=== PATIENT | female | born 1940 | race Caucasian/White ===

== ENCOUNTER 2016-12-24 12:00 | Emergency (ER) | payer MEDICARE, BC ==
[~2016-12-24] VITALS: Ht 154.9 cm; Wt 48.2 kg
[~2016-12-24 12:00] MED LIST: BIAXIN 500MG T500 MG PO; CALTRATE 600 +1 TAB PO; COSOPT 2%-0.5%10 ML OU; COSOPT EYE DROPS OD; COZAAR 25MG25 MG/TAB PO; DESYREL 50MG50 MG PO; ETHAMBUTOL HYD400 MG PO; K-TAB10 PO; KLOR-CON 1010 MEQ PO; LEVAQUIN 5500 MG/TA1 PO; LEVAQUIN 750MG750 M1 PO; LISINOPRIL10 MG PO; MAXZIDE-25MG TA1 TAB PO; MULTIPLE VITAMI1 CTB PO; MULTIVITAMIN1 CTB PO; PHENERGAN 25 TA25 MG PO; PHENERGAN W/CO120 M1 PO; PHENERGAN W/CO120 ML PO; PRINZIDE 12.5 M1 TAB PO; RIFADIN300 MG PO; SENOKOT8.6 MG; SENOKOT8.6 MG PO; TETRACYCLINE 2250 MG; TRIAMTERENE/HCT1 CAP PO; VITAMIN D; XALATAN EYE DROPS OU; ZESTRIL 5MG5 MG PO; ZITHROMAX 250M250 MG PO; ZOCOR 10MG10 MG PO; ZOCOR 20MG20 MG PO; ZOFRAN 4MG T4 MG/TAB PO
[2016-12-24 12:02] VITALS: BP 153/84; TEMP 97.6
[2016-12-24 13:19] VITALS: PULSE 55
== END 2016-12-24 13:19 | disposition home or self-care (01) ==
LOC: COL.ER 12:00
DX: S06.0X0A Concussion without loss of consciousness, initial encounter (principal); S01.111A Laceration without foreign body of right eyelid and periocular area, initial encounter; S01.511A Laceration without foreign body of lip, initial encounter; S00.93XA Contusion of unspecified part of head, initial encounter; S80.812A Abrasion, left lower leg, initial encounter; I10 Essential (primary) hypertension; H40.9 Unspecified glaucoma; Z23 Encounter for immunization; W01.198A Fall on same level from slipping, tripping and stumbling with subsequent striking against other object, initial encounter

== ENCOUNTER 2017-04-08 21:49 | Emergency (ER) | payer MEDICARE, BC ==
[~2017-04-08] VITALS: Ht 154.9 cm; Wt 48.6 kg
[2017-04-08 21:51] VITALS: TEMP 98.4
[2017-04-08] MEDS ORDERED: HCTZ12.5TAB PO (21:54)
[2017-04-08 22:34] LABS: BASO # 0.1 (0.0-0.2); BASO % 1.2 % (0.0-2.0); EOS # 0.1 (0.0-0.7); EOS % 1.5 % (0-4.0); GRAN # 5.4 (1.4-6.5); GRAN % 66.8 % (42.2-75.2); HEMATOCRIT 44.5 % (37.0-47.0); LYMPH # 1.4 (1.2-3.4); LYMPH % 17.6 % (20.0-51.0); MEAN CELL VOLUME 89 fl (80.0-100.0); MEAN CORPUSCULAR HEMOGLOBIN 30 pg (27.0-31.0); MEAN CORPUSCULAR HGB CONC 34 g/dl (33.0-37.0); MEAN PLATELET VOLUME 9.8 fl (7.4-10.4); MONO % 12.7 % (1.7-9.3); PLATELET COUNT 248 K/mm3 (130-400); RED BLOOD COUNT 4.98 M/mm3 (4.10-5.30); REDCELL DISTRIBUTION WIDTH-CV 13.8 % (11.5-14.5)
[2017-04-08 22:42] LABS: INR 1.1 (0.8-3.0); PROTHROMBIN TIME 12.4 SECONDS (9.7-12.8)
[2017-04-08 22:45] LABS: PARTIAL THROMBOPLASTIN TIME 29.2 SECONDS (26.0-37.0)
[2017-04-08 22:48] LABS: ADJUSTED CALCIUM 9.3 mg/dL (8.4-10.2); ALBUMIN 4.3 gm/dL (3.5-5.0); BILIRUBIN,TOTAL 0.6 mg/dL (0.0-1.0); C-REACTIVE PROTEIN 1.3 mg/dL (0.0-0.9); CALCIUM 9.5 mg/dL (8.4-10.2); CREATININE, serum 0.91 mg/dL (0.52-1.25); POTASSIUM 3.6 mmol/L (3.4-5.0); TOTAL PROTEIN 7.7 gm/dL (6.4-8.2)
[2017-04-09 00:14] VITALS: BP 155/80; PULSE 65
== END 2017-04-09 00:15 | disposition home or self-care (01) ==
LOC: COL.ER 21:49
PROVIDERS: Emergency Medicine
DX: J47.9 Bronchiectasis, uncomplicated (principal); I10 Essential (primary) hypertension

== ENCOUNTER → 2017-11-30 | Outpatient (CLI) | payer MEDICARE, BC ==
[~2017-11-30] MED LIST changes: +HCTZ12.5TAB PO
== END ==
LOC: MC.RAD 13:36
DX: Z12.31 Encounter for screening mammogram for malignant neoplasm of breast (principal); N64.89 Other specified disorders of breast

== ENCOUNTER → 2017-12-13 | Outpatient (CLI) | payer MEDICARE, BC | LOC: MC.RAD 07:54 | DX: R92.2 Inconclusive mammogram (principal); N64.89 Other specified disorders of breast ==

== ENCOUNTER 2018-01-05 12:55 | Emergency (ER) | payer MEDICARE, BC ==
[~2018-01-05] VITALS: Ht 154.9 cm; Wt 48.6 kg
[2018-01-05 13:07] VITALS: TEMP 97.4
[2018-01-05] MEDS ORDERED: DYAZIDE 25 MG-31 CAP PO (13:12)
[2018-01-05] MEDS ORDERED: VITAMIN D31000 I1 PO (13:13)
[2018-01-05 13:57] LABS: BASO # 0.1 (0.0-0.2); EOS # 0.1 (0.0-0.7); GRAN # 5.1 (1.4-6.5); GRAN % 71.1 % (42.2-75.2); HEMATOCRIT 46.2 % (37.0-47.0); HEMOGLOBIN 15.6 g/dl (12.5-16.0); LYMPH # 1.1 (1.2-3.4); MEAN CELL VOLUME 88 fl (80.0-100.0); MEAN CORPUSCULAR HEMOGLOBIN 30 pg (27.0-31.0); MEAN CORPUSCULAR HGB CONC 34 g/dl (33.0-37.0); MEAN PLATELET VOLUME 9.4 fl (7.4-10.4); MONO # 0.8 (0.1-0.6); MONO % 10.5 % (1.7-9.3); PLATELET COUNT 249 K/mm3 (130-400); RED BLOOD COUNT 5.26 M/mm3 (4.10-5.30); REDCELL DISTRIBUTION WIDTH-CV 13.7 % (11.5-14.5)
[2018-01-05 14:08] LABS: PROTHROMBIN TIME 11.6 SECONDS (9.7-12.8)
[2018-01-05 14:11] LABS: PARTIAL THROMBOPLASTIN TIME 35.3 SECONDS (26.0-37.0)
[2018-01-05 14:13] LABS: D-DIMER < 200.00 ng/mLDDu (200-230)
[2018-01-05 14:17] LABS: ALANINE AMINOTRANSFERASE 29 U/L (9-52); ALKALINE PHOSPHATASE 94 U/L (50-136); ANION GAP 14 mmol/L (7-16); AST,SGOT 42 U/L (15-37); BILIRUBIN,TOTAL 0.5 mg/dL (0.0-1.0); BLOOD UREA NITROGEN 12 mg/dL (7-17); CALCIUM 9.3 mg/dL (8.4-10.2); CARBON DIOXIDE 27 mmol/L (22-30); CHLORIDE 96 mmol/L (98-107); CREATININE, serum 0.87 mg/dL (0.52-1.25); GLUCOSE 94 mg/dL (74-106); POTASSIUM 3.6 mmol/L (3.4-5.0); SODIUM 137 mmol/L (137-145)
[2018-01-05 14:33] LABS: TROPONIN-I < 0.012 ng/mL (0.000-0.034)
[2018-01-05] MEDS ORDERED: TESSALON PERLE200 MG PO (14:41)
[2018-01-05 15:33] VITALS: BP 137/82; PULSE 70
== END 2018-01-05 15:34 | disposition home or self-care (01) ==
LOC: COL.ER 12:55
PROVIDERS: Emergency Medicine
DX: J18.9 Pneumonia, unspecified organism (principal); J47.9 Bronchiectasis, uncomplicated; I10 Essential (primary) hypertension

== ENCOUNTER → 2019-02-01 | Outpatient (CLI) | payer MEDICARE, BC ==
[~2019-02-01] MED LIST changes: +DYAZIDE 25 MG-31 CAP PO; +TESSALON PERLE200 MG PO; +VITAMIN D31000 I1 PO
== END ==
LOC: MC.RAD 11:18
DX: Z12.31 Encounter for screening mammogram for malignant neoplasm of breast (principal)

== ENCOUNTER 2020-03-09 09:29 | Outpatient (CLI) | payer MEDICARE, BC ==
[~2020-03-09] VITALS: Ht 154.9 cm; Wt 49.6 kg
[2020-03-09] VITALS (14 sets, daily range): BP systolic 126–177; BP diastolic 78–104; PULSE 52–75
[~2020-03-09 09:29] MED LIST changes: +ALDACTONE 25MG25 M1 PO; +ASPIRIN 81M81 MG/TA2 PO; +CALCIUM 600MG+D1 TAB PO; +ERY-TAB250 MG PO; +LIPITOR 40MG TA40 MG PO; -MULTIVITAMIN1 CTB PO; +NITROSTAT0.4 MG/TAB SL; +OMNICEF 300MG300 MG PO; +ONE-A-DAY ESSE1 EACH PO; +PLAVIX 75MG TAB75 MG PO; +PROLIA60 MG/ML SQ; +TIMOLOL MALEATE5 M1 OP; +TOPROL XL 25MG25 MG PO
--- NOTE | 2020-03-09 11:24 | NUR ---
Pt arrived to room with pain at right front sternum area.Report received from Josefina delcid.Dr Weiner notified and Dr Weiner came to see pt.Crofton 2 tabs ordered.Per pt request,norco 5mg po,one tab.Will continue to monitor.
--- NOTE | 2020-03-09 12:50 | NUR ---
dISCHARGE INSTRUCTIONS GIVEN TO PT.PT VERBALIZES UNDERSTANDING.int REMOVED,CATHETR TIP INTACT.
--- NOTE | 2020-03-09 13:11 | NUR ---
Pt escorted out via wheelchair by mu Moore.
== END 2020-03-09 13:37 | disposition home or self-care (01) ==
LOC: COL.RAD 09:29
DX: R91.8 Other nonspecific abnormal finding of lung field (principal)

== ENCOUNTER 2020-12-03 16:27 | Emergency (ER) | payer MEDICARE, BC ==
[~2020-12-03] VITALS: Ht 154.9 cm; Wt 51.8 kg
[2020-12-03 16:34] VITALS: TEMP 98.3
[2020-12-03 17:50] LABS: BASO # 0.1 (0.0-0.2); BASO % 1.3 % (0.0-2.0); EOS # 0.1 (0.0-0.7); EOS % 1.5 % (0-4.0); GRAN % 73.2 % (42.2-75.2); HEMATOCRIT 43.4 % (37.0-47.0); LYMPH # 1.2 (1.2-3.4); MEAN CELL VOLUME 89 fl (80.0-100.0); MEAN CORPUSCULAR HEMOGLOBIN 31 pg (27.0-31.0); MEAN CORPUSCULAR HGB CONC 35 g/dl (33.0-37.0); MEAN PLATELET VOLUME 9.9 fl (7.4-10.4); MONO # 0.8 (0.1-0.6); MONO % 9.6 % (1.7-9.3); PLATELET COUNT 241 K/mm3 (130-400); RED BLOOD COUNT 4.89 M/mm3 (4.10-5.30); REDCELL DISTRIBUTION WIDTH-CV 13.4 % (11.5-14.5)
[2020-12-03 18:32] LABS: ALANINE AMINOTRANSFERASE 35 U/L (4-34); ALBUMIN 4.4 gm/dL (3.5-5.0); ALKALINE PHOSPHATASE 74 U/L (50-136); ANION GAP 9 mmol/L (7-16); AST,SGOT 38 U/L (15-37); BILIRUBIN,TOTAL 0.5 mg/dL (0.0-1.0); BLOOD UREA NITROGEN 14 mg/dL (7-17); CALCIUM 9.2 mg/dL (8.4-10.2); CARBON DIOXIDE 26 mmol/L (22-30); CHLORIDE 94 mmol/L (98-107); CREATININE, serum 0.68 (0.52-1.25); GLUCOSE 95 mg/dL (74-106); POTASSIUM 4.5 mmol/L (3.4-5.0); SODIUM 129 mmol/L (137-145); TOTAL PROTEIN 7.6 gm/dL (6.4-8.2)
[2020-12-03 18:46] LABS: TROPONIN-I < 0.012 ng/mL (0.000-0.035)
[2020-12-03 19:20] VITALS: BP 142/78; PULSE 68
== END 2020-12-03 19:20 | disposition home or self-care (01) ==
LOC: COL.ER 16:27
PROVIDERS: Emergency Medicine; Nurse Practitioner
DX: I10 Essential (primary) hypertension (principal); I25.2 Old myocardial infarction; Z95.5 Presence of coronary angioplasty implant and graft; Z88.2 Allergy status to sulfonamides

== ENCOUNTER 2023-08-02 17:26 | Inpatient (IN) | payer MEDICARE, BC ==
[~2023-08-02] VITALS: Ht 152.4 cm; Wt 43.1 kg
[~2023-08-02 17:26] MED LIST changes: +DECADRON6 MG PO; +DOXYCYCLINE 10100 MG PO; +LEXAPRO 5MG5 MG PO; +PROAIR HFA0.09 MG/AC IH; +SENNA-LAX8.6 MG PO
[2023-08-02 18:53] LABS: BASO # 0.1 K/mm3 (0.0-0.2); BASO % 0.5 % (0.0-2.0); EOS # 0.1 K/mm3 (0.0-0.7); GRAN # 10.4 K/mm3 (1.4-6.5); GRAN % 82.5 % (42.2-75.2); HEMATOCRIT 38.5 % (37.0-47.0); LYMPH % 7.9 % (20.0-51.0); MEAN CELL VOLUME 92 fl (80.0-100.0); MEAN CORPUSCULAR HEMOGLOBIN 31 pg (27-31); MEAN CORPUSCULAR HGB CONC 34 g/dl (33.0-37.0); MEAN PLATELET VOLUME 9.2 fl (7.4-10.4); MONO # 0.9 K/mm3 (0.1-0.6); MONO % 7.5 % (1.7-9.3); PLATELET COUNT 294 K/mm3 (130-400); RED BLOOD COUNT 4.18 M/mm3 (4.10-5.30); REDCELL DISTRIBUTION WIDTH-CV 13.2 % (11.5-14.5)
[2023-08-02 19:10] LABS: ALBUMIN 2.9 gm/dL (3.4-4.8); BILIRUBIN,TOTAL 0.6 mg/dL (0.2-1.2); C-REACTIVE PROTEIN 9.85 mg/dL (0.00-0.50); CALCIUM 8.5 mg/dL (8.4-10.2); CREATININE, serum 0.58 mg/dL (0.57-1.11); POTASSIUM 4.1 mmol/L (3.5-4.5); TOTAL PROTEIN 6.1 gm/dL (6.2-8.1)
[2023-08-02 19:19] LABS: TROPONIN-I 0.016 ng/mL (0.00-0.033)
[2023-08-02] MEDS ORDERED: ALDACTONE 25MG25 M1 PO (20:21)
[2023-08-02] MEDS ORDERED: COZAAR 25MG25 MG/TAB PO (20:22)
[2023-08-02 21:00] VITALS: BP_SYST 121
[2023-08-02 21:18] VITALS: BP 121/70; PULSE 84; TEMP 97.7
[2023-08-02 21:30] LABS: CHOLESTEROL RISK RATIO 2.7; MAGNESIUM 1.6 mg/dL (1.6-2.6); PHOSPHOROUS 2.6 mg/dL (2.3-4.7)
[2023-08-03] VITALS (13 sets, daily range): BP systolic 92–103; BP diastolic 44–60; PULSE 56–69; TEMP 97.6–98.5
--- NOTE | 2023-08-03 04:05 | NUR ---
Pt arrived to medical unit at 2114. Alert and oriented x4 accompanied by her Daughter. Daughter advised to take a home covid 19 test or go to emergency to be tested. She is her mothers main caregiver and has been exposed. She was wearing a mask while in the room. Pt vital signs stable, bp soft. Shift assessment complete, on 2 liters nasal cannula. 1 person assist with fww, uses a walker at home. Multiple falls reported over the last 12 months. [place] with bilat hearing aides at bedside. Medicated per emar. Denies further neeeds at this time. Even, unlabored respr. Call light within reach bed alarm set.
[2023-08-03 05:48] LABS: BASO % 0.4 % (0.0-2.0); EOS # 0.1 K/mm3 (0.0-0.7); EOS % 0.7 % (0.0-4.0); GRAN # 5.6 K/mm3 (1.4-6.5); GRAN % 69.9 % (42.2-75.2); HEMATOCRIT 38.3 % (37.0-47.0); HEMOGLOBIN 12.8 g/dl (12.5-16.0); LYMPH # 1.4 K/mm3 (1.2-3.4); LYMPH % 17.1 % (20.0-51.0); MEAN CELL VOLUME 92 fl (80.0-100.0); MEAN CORPUSCULAR HEMOGLOBIN 31 pg (27-31); MEAN CORPUSCULAR HGB CONC 33 g/dl (33.0-37.0); MEAN PLATELET VOLUME 8.9 fl (7.4-10.4); MONO # 0.9 K/mm3 (0.1-0.6); MONO % 11.5 % (1.7-9.3); PLATELET COUNT 267 K/mm3 (130-400); RED BLOOD COUNT 4.15 M/mm3 (4.10-5.30); REDCELL DISTRIBUTION WIDTH-CV 13.3 % (11.5-14.5)
--- NOTE | 2023-08-03 06:07 | NUR ---
HOSPITALIST KENNA, NOTIFIED OF CRITICAL LAB D-dIMER ELEVATION. AWAITING ORDER FOR LOVENOX.
[2023-08-03 06:15] LABS: ALBUMIN 2.7 gm/dL (3.4-4.8); BILIRUBIN,TOTAL 0.6 mg/dL (0.2-1.2); CALCIUM 8.3 mg/dL (8.4-10.2); CREATININE, serum 0.59 mg/dL (0.57-1.11); TOTAL PROTEIN 5.7 gm/dL (6.2-8.1)
--- NOTE | 2023-08-03 10:34 | NUR ---
Patient alert and oriented x4. Denies pain this morning. Shift assessment complete, lung sounds course on the right side and diminished in bases. Patient noted to have a wet cough, but states no mucus has come up. Encouraged to spit any sputum out when possible. Scheduled cough medicine administered. Patient tolerating food and fluids well, has low appetite but ate all of breakfast. Patient ambulating to bathroom and back to bed with a steady gait. SBA and walker required. Patient currently in bed with call light in reach, daughter at bedside. All needs met at this time.
--- NOTE | 2023-08-03 16:19 | NUR ---
Due to COVID protocol, hospice social worker attempted to reach patient via room telephone. Yelitza, patient's daughter, answered the phone and expressed patient has a hard time hearing people via telephone. Yelitza confirmed patient lives in [place] with her , Levy, P# [phone]. Yelitza expressed she is patient's DPOA-HC and best point of contact, P# [phone]. PCP is Dr. Morales, pharmacy is [facility]. No issues affording medications. Yelitza expressed she is primary DPOA-HC and her daughter is secondary, Zachary. SW requested a copy of the DPOA-HC when she could provide a copy. Patient uses a walker at home and Yelitza reports she is independent with ADLS and no home health services at this time. Yelitza will be transporting her to and from appointments. Patient would like to return home at time of discharge. Discharge plan: Home
--- NOTE | 2023-08-03 17:55 | NUR ---
Patient remains stable, BP trending low. Patient denies dizziness and has been ambulating to bathroom with SBA. Per PT patient's SpO2 decreased to 80s during extended activity. Denies pain or discomort. Patient producing thin/moderate/green sputum after Robitussin cough medicine this morning, specimen collected and sent to lab. Patient in bed with call light in reach, all needs met at this time.
[2023-08-04] VITALS (7 sets, daily range): BP systolic 100–129; BP diastolic 60–74; PULSE 60–80; TEMP 97.9–98.1
[2023-08-04 07:32] LABS: BASO % 0.2 % (0.0-2.0); GRAN # 8.6 K/mm3 (1.4-6.5); GRAN % 80.4 % (42.2-75.2); HEMATOCRIT 37.6 % (37.0-47.0); HEMOGLOBIN 12.6 g/dl (12.5-16.0); LYMPH # 1.2 K/mm3 (1.2-3.4); MEAN CELL VOLUME 92 fl (80.0-100.0); MEAN CORPUSCULAR HEMOGLOBIN 31 pg (27-31); MEAN CORPUSCULAR HGB CONC 34 g/dl (33.0-37.0); MONO # 0.8 K/mm3 (0.1-0.6); MONO % 7.7 % (1.7-9.3); PLATELET COUNT 282 K/mm3 (130-400); RED BLOOD COUNT 4.07 M/mm3 (4.10-5.30); REDCELL DISTRIBUTION WIDTH-CV 13.4 % (11.5-14.5)
[2023-08-04 07:53] LABS: CALCIUM 8.4 mg/dL (8.4-10.2); CREATININE, serum 0.56 mg/dL (0.57-1.11); MAGNESIUM 1.9 mg/dL (1.6-2.6); POTASSIUM 4.4 mmol/L (3.5-4.5)
--- NOTE | 2023-08-04 09:46 | NUR ---
Patient alert and oriented x4. Shift assessment complete, no new variances noted. Lung sounds continue to be course, patient still spitting up moderate/thin sputum. Tolerating food/fluids well. Ambulating to bathroom with SBA and walker per baseline. Required some cueing with walker this morning. Patient in bed with call light in reach, all needs met at this time.
[2023-08-04] MEDS ORDERED: DECADRON6 MG PO (10:01)
[2023-08-04] MEDS ORDERED: DOXYCYCLINE 10100 MG PO (10:02)
--- NOTE | 2023-08-04 14:27 | NUR ---
Discharge instructions discussed with patient including follow-up appointment, new medications, and education packets. Discussed signs of respiratory distress and shortness of breath. Patient verbalized understanding. IV discontinued to left hand with no complications. Telemetry off. Patient escorted out by staff and family via wheelchair.
== END 2023-08-04 14:28 | disposition home or self-care (01) | DRG 871 ==
LOC: COL.ER 17:26 → MEDICAL 19:54
PROVIDERS: Nurse Practitioner; Nurse Practitioner Family; ADMIT Internal Medicine
DX: A41.89 Other specified sepsis (principal); J12.82 Pneumonia due to coronavirus disease 2019; U07.1 COVID-19; E44.0 Moderate protein-calorie malnutrition; E87.1 Hypo-osmolality and hyponatremia; Z68.1 Body mass index [BMI] 19.9 or less, adult; I10 Essential (primary) hypertension; E78.5 Hyperlipidemia, unspecified; F32.A Depression, unspecified; E83.42 Hypomagnesemia; I25.10 Atherosclerotic heart disease of native coronary artery without angina pectoris; J47.9 Bronchiectasis, uncomplicated; Z95.5 Presence of coronary angioplasty implant and graft; Z88.2 Allergy status to sulfonamides; Z79.82 Long term (current) use of aspirin; Z79.899 Other long term (current) drug therapy; Z23 Encounter for immunization
CPT/HCPCS: J0456; J0696; J1650; J3475; J7030; J7050; J8540; Q3014

== ENCOUNTER → 2023-08-16 | Outpatient (CLI) | payer MEDICARE, BC | LOC: COL.RAD 12:53 | DX: R91.8 Other nonspecific abnormal finding of lung field (principal) ==

== ENCOUNTER 2024-03-21 17:31 | Inpatient (IN) | payer MEDICARE, BC ==
[~2024-03-21] VITALS: Ht 154.9 cm; Wt 41.4 kg
[~2024-03-21 17:31] MED LIST changes: +BETAXOLOL HCL OP; +MOTRIN 400400 MG/TAB PO; +PERCOCET 325 MG1 TA2 PO; +Remove Patch TD
[2024-03-21] MEDS ORDERED: fentaNYL 50 MCG/ML 2 ML VIAL IV ONE (18:00)
[2024-03-21] MEDS ORDERED: Morphine 4 MG/ML VIAL IV PRN ×2 (19:30→20:30)
[2024-03-21 19:42] LABS: BASO # 0.1 K/mm3 (0.0-0.2); BASO % 0.9 % (0.0-2.0); EOS # 0.2 K/mm3 (0.0-0.7); EOS % 1.6 % (0.0-4.0); GRAN # 10.7 K/mm3 (1.4-6.5); GRAN % 85.7 % (42.2-75.2); HEMOGLOBIN 15.5 g/dl (12.5-16.0); LYMPH % 7.6 % (20.0-51.0); MEAN CELL VOLUME 93 fl (80.0-100.0); MEAN CORPUSCULAR HEMOGLOBIN 31 pg (27-31); MEAN CORPUSCULAR HGB CONC 34 g/dl (33.0-37.0); MEAN PLATELET VOLUME 10.3 fl (7.4-10.4); MONO # 0.5 K/mm3 (0.1-0.6); MONO % 3.6 % (1.7-9.3); PLATELET COUNT 220 K/mm3 (130-400); RED BLOOD COUNT 4.93 M/mm3 (4.10-5.30)
[2024-03-21 19:47] LABS: INR 1.1 (0.8-3.0); PROTHROMBIN TIME 11.9 SECONDS (9.7-12.8)
[2024-03-21 20:03] LABS: BILIRUBIN,TOTAL 0.6 mg/dL (0.2-1.2); CALCIUM 9.5 mg/dL (8.4-10.2); CREATININE, serum 0.75 mg/dL (0.57-1.11); POTASSIUM 3.9 mEq/L (3.5-4.5)
[2024-03-21] MEDS ORDERED: Ondansetron 4 MG/2 ML VIAL IV PRN (20:30)
[2024-03-21] MEDS ORDERED: oxyCODONE/Acetaminophen 5-325 MG TAB PO PRN (20:30)
[2024-03-21] MEDS ORDERED: LR 1,000 ML IV SCH ×2 (20:30)
[2024-03-21] MEDS ORDERED: hydrALAZINE 20 MG/ML 1 ML VIAL IV PRN (20:30)
[2024-03-21 21:00] VITALS: BP_SYST 198
[2024-03-21] MEDS ORDERED: Sennosides/Docusate 8.6-50 MG TAB PO SCH (21:00)
[2024-03-21] MEDS ORDERED: Atorvastatin 40 MG TAB PO SCH (21:00)
[2024-03-21 22:09] VITALS: BP 198/90; PULSE 65; TEMP 97.3
[2024-03-21 23:49] VITALS: BP 170/85; PULSE 88; TEMP 97.5
[2024-03-22] VITALS (15 sets, daily range): BP systolic 114–176; BP diastolic 68–90; PULSE 75–95; TEMP 97.2–98.4
[2024-03-22 02:38] LABS: COLLECTION METHOD CLEAN CATCH
[2024-03-22 02:45] LABS: URINE APPEARANCE CLEAR (CLEAR/HAZY); URINE BLOOD NEGATIVE (NEGATIVE); URINE COLOR YELLOW (YELLOW); URINE GLUCOSE NEGATIVE (NEGATIVE); URINE KETONE NEGATIVE (NEGATIVE); URINE NITRATE NEGATIVE (NEGATIVE); URINE PROTEIN(semi-quant) NEGATIVE (NEGATIVE); URINE UROBILINOGEN 0.2 E.U/dL (0.2-1.0)
[2024-03-22 06:33] LABS: BASO % 0.2 % (0.0-2.0); GRAN # 12.2 K/mm3 (1.4-6.5); GRAN % 87.9 % (42.2-75.2); HEMATOCRIT 42.7 % (37.0-47.0); HEMOGLOBIN 14.5 g/dl (12.5-16.0); LYMPH # 0.9 K/mm3 (1.2-3.4); LYMPH % 6.4 % (20.0-51.0); MEAN CELL VOLUME 91 fl (80.0-100.0); MEAN CORPUSCULAR HEMOGLOBIN 31 pg (27-31); MEAN CORPUSCULAR HGB CONC 34 g/dl (33.0-37.0); MEAN PLATELET VOLUME 9.6 fl (7.4-10.4); MONO # 0.7 K/mm3 (0.1-0.6); PLATELET COUNT 198 K/mm3 (130-400); RED BLOOD COUNT 4.68 M/mm3 (4.10-5.30)
--- NOTE | 2024-03-22 06:40 | NUR ---
RECEIVED REPORT FROM PSYCH SOCIAL WORKER, PATIENT ARRIVED TO [facility] AROUND 2200 BY BED. ALL BELONGINGS WITH PATIENT AT TIME OF TRANSFER. PATIENT IN OBVIOUS PAIN, ORIENTED TO ROOM, CALL LIGHT WITHIN REACH, FALL PRECAUTIONS IN PLACE. NO ACUTE EVENTS.
[2024-03-22 06:52] LABS: CALCIUM 10.4 mg/dL (8.4-10.2); CREATININE, serum 0.76 mg/dL (0.57-1.11); POTASSIUM 3.8 mEq/L (3.5-4.5)
--- NOTE | 2024-03-22 07:30 | NUR ---
Pt doing okay this morning. She is awake and alert/oriented. Pt having some complaints of pain in her right hip, PRN pain medication given. Discussed the plan for the day with her in regards to getting cleared for surgery and then plan for surgery in the afternoon.
[2024-03-22] MEDS ORDERED: Albuterol/Ipratropium 3 MG-0.5 MG/3 ML Neb Soln IH PRN (08:00)
[2024-03-22] MEDS ORDERED: Doxycycline Hyclate 100 MG in NS 150 ML IV SCH (08:15)
[2024-03-22] MEDS ORDERED: Polyethylene Glycol 3350 17 GM PDS PO SCH (09:00)
[2024-03-22] MEDS ORDERED: Losartan 25 MG TAB PO SCH (09:00)
[2024-03-22] MEDS ORDERED: guaiFENesin 200 MG TAB PO SCH (09:00)
[2024-03-22] MEDS ORDERED: LR 1,000 ML IV SCH (10:00)
--- NOTE | 2024-03-22 11:00 | NUR ---
Hospitalist, cardiology and pulmonolgy have all been in to see pt. Notes have been entered and pt is cleared for surgery. Called and updated anesthesia regarding risks. Daughter is present in the room at this time. I did call and update ortho as well.
[2024-03-22] MEDS ORDERED: Glycopyrrolate 0.2 MG/ML 1 ML VIAL ONE ×2 (11:23→15:01)
[2024-03-22] MEDS ORDERED: NS 10 ML IV ONE (11:23)
[2024-03-22] MEDS ORDERED: Lidocaine PF 2% (20 MG/ML) 5 ML VIAL ONE (11:23)
[2024-03-22] MEDS ORDERED: Tranexamic Acid 1,000 MG/10 ML VIAL ONE ×2 (11:26→15:01)
--- NOTE | 2024-03-22 11:44 | NUR ---
D: Dry Wall Applicator stopped by room on rounds. A: Pt was resting and content with daughter in the room. Pt has lived in [place] all her life. Pt has no needs right now. P: Dry Wall Applicator informed pt that if she needed anything from the scale model maker area to let her nurse know. Dry Wall Applicator will follow up as needed.
[2024-03-22] MEDS ORDERED: fentaNYL 50 MCG/ML 2 ML VIAL ONE (12:57)
--- NOTE | 2024-03-22 13:00 | NUR ---
Pt off the floor for surgery, daughter followed down to waiting room
[2024-03-22] MEDS ORDERED: Magnes Hydrox (MOM) 80 MG/ML 30 ML CUP PO PRN (13:45)
[2024-03-22] MEDS ORDERED: oxyCODONE 5 MG TAB PO PRN ×2 (13:45)
[2024-03-22] MEDS ORDERED: Naloxone 0.4 MG/ML VIAL IV PRN (13:45)
[2024-03-22] MEDS ORDERED: NS 1,000 ML IV SCH (13:45)
[2024-03-22] MEDS ORDERED: Acetaminophen 500 MG TAB PO SCH (14:42)
[2024-03-22] MEDS ORDERED: Topical Skin Adhesive 1 EACH (1 ML) TOP ONE (15:00)
[2024-03-22] MEDS ORDERED: Ondansetron 4 MG/2 ML VIAL ONE (15:01)
[2024-03-22] MEDS ORDERED: fentaNYL 50 MCG/ML 1 ML SYRINGE/VIAL [PACU/SDC ONLY] IV PRN (15:30)
[2024-03-22] MEDS ORDERED: Ondansetron 4 MG/2 ML VIAL IV PRN (15:30)
[2024-03-22] MEDS ORDERED: HYDROmorphone 1 MG/1 ML SYRINGE [PACU/SDC ONLY] IV PRN (15:30)
[2024-03-22] MEDS ORDERED: hydrALAZINE 20 MG/ML 1 ML VIAL IV PRN (15:30)
--- NOTE | 2024-03-22 17:00 | NUR ---
structural worker met with patient and her daughter, Yelitza, P# [phone], to discuss discharge planning. Patient lives with her in [place]. PCP is Dr. Morales, Pharmacy is [facility]. No issues affording medications. Insurance is Medicare A and B and BCBS. DPOA-HC is Yelitza. DME is walker. Patient is currently on oxygen but that is not her baseline. Patient reports normally she is independent with ADLS and Yelitza transports her to and from appointments. Demi would like to return home at time of discharge. SW explained PT will evaluate her after her surgery and they would provide recommendations from there. JOHN PAUL explained patient may need rehab before returning home, SW provided the Medicare.gov list of options for IPR and SNF. JOHN PAUL explained both options for rehab and the agencies in her area are listed on those forms along with the rating scores. JOHN PAUL explained she would follow up with PT recommendations after she has surgery. Patient and daughter understood. Discharge plan: TBD pending surgery/PT recommendations
--- NOTE | 2024-03-22 17:04 | NUR ---
PT TO ROOM 344 PER BED WITH REPORT FROM REBECCA KAUFFMAN PACU @[id number]. PT IS A/O X4, LUNGS CTA, BOWEL SOUNDS PRESENT. DRESSING TO RIGHT HIP CDI. OCCLUSIVE AQUACEL OVER INCISION. SCDS AND TEDS BILATERALLY. IV TO RFA, DAUGHTER AT BEDSIDE.
[2024-03-22] MEDS ORDERED: Formoterol Neb Soln 20 MCG/2 ML UD IH SCH (19:00)
[2024-03-22] MEDS ORDERED: ceFAZolin 1 G in Water For Injection,Sterile 10 ML IV SCH (19:00)
[2024-03-22] MEDS ORDERED: Budesonide Neb Susp 0.5 MG/2 ML AMP IH SCH (19:00)
[2024-03-22] MEDS ORDERED: Sennosides/Docusate 8.6-50 MG TAB PO SCH (21:00)
[2024-03-23] VITALS (11 sets, daily range): BP systolic 114–133; BP diastolic 50–69; PULSE 66–74; TEMP 97.8–98.3
[2024-03-23 06:11] LABS: BASO % 0.2 % (0.0-2.0); EOS # 0.3 K/mm3 (0.0-0.7); GRAN # 15.2 K/mm3 (1.4-6.5); GRAN % 87.3 % (42.2-75.2); LYMPH # 0.7 K/mm3 (1.2-3.4); LYMPH % 3.9 % (20.0-51.0); MEAN CELL VOLUME 93 fl (80.0-100.0); MEAN CORPUSCULAR HGB CONC 34 g/dl (33.0-37.0); MEAN PLATELET VOLUME 10.1 fl (7.4-10.4); MONO # 1.1 K/mm3 (0.1-0.6); MONO % 6.1 % (1.7-9.3); PLATELET COUNT 175 K/mm3 (130-400); RED BLOOD COUNT 3.79 M/mm3 (4.10-5.30)
[2024-03-23 06:24] LABS: CALCIUM 8.6 mg/dL (8.4-10.2); CREATININE, serum 0.71 mg/dL (0.57-1.11); POTASSIUM 3.3 mEq/L (3.5-4.5)
[2024-03-23 06:28] LABS: HEMATOCRIT 35.3 % (37.0-47.0); HEMOGLOBIN 11.9 g/dl (12.5-16.0); MEAN CORPUSCULAR HEMOGLOBIN 31 pg (27-31)
--- NOTE | 2024-03-23 07:22 | NUR ---
THE PATIENT WAS AWAKE MOST OF THE NIGHT. THE PATIENT WAS ALERT AND ORIENTED AND USED THE CALL LIGHT APPROPRIATELY. THE PATIENT RATED HER RIGHT HIP PAIN 7/10 AND SCHEDULED TYLENOL WAS GIVEN WELL PRN ORAL PAIN MEDICATION ONCE. ICE WAS APPLIED TO THE RIGHT HIP. THE PATIENT HAS BILATERAL JENNIFER HOSE ON AND ONE SCD TO THE LEFT LOWER EXTREMITY. NO OTHER NEEDS OVERNIGHT. CALL LIGHT AND PERSONAL BELONGINGS WITHIN REACH. BED ALARM ON.
[2024-03-23] MEDS ORDERED: *Potassium Replacement Protocol MC SCH (08:00)
[2024-03-23] MEDS ORDERED: Potassium Bicarbonate/Citrate 20 MEQ Effervescent TAB PO SCH (08:00)
--- NOTE | 2024-03-23 08:30 | NUR ---
Pt. sitting up in bed. Pt. is alert and partially confused. Shift assessment complete. IV to rt. forearm patent, IV fluids infusing per orders. Mario catheter to dd, clear yellow urine noted. Pt. denies further needs, call light within reach.
--- NOTE | 2024-03-23 10:57 | NUR ---
ABRASIVE BAND WINDER met with PT to discuss recommendations. At this time, PT is thinking SNF or SB but unable to give full recommendation at this time. Pt is having cognitive deficits at this time. ABRASIVE BAND WINDER will continue to follow. 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 D/C: PT/OT recommendations. (SNF vs. SB potentially)
[2024-03-24] VITALS (13 sets, daily range): BP systolic 105–160; BP diastolic 58–76; PULSE 62–76; TEMP 97.6–98
[2024-03-24 06:16] LABS: BASO % 0.2 % (0.0-2.0); EOS # 0.1 K/mm3 (0.0-0.7); EOS % 0.4 % (0.0-4.0); GRAN # 11.9 K/mm3 (1.4-6.5); GRAN % 84.3 % (42.2-75.2); HEMOGLOBIN 11.8 g/dl (12.5-16.0); LYMPH # 0.8 K/mm3 (1.2-3.4); LYMPH % 5.9 % (20.0-51.0); MEAN CELL VOLUME 93 fl (80.0-100.0); MEAN CORPUSCULAR HEMOGLOBIN 32 pg (27-31); MEAN CORPUSCULAR HGB CONC 34 g/dl (33.0-37.0); MONO # 1.2 K/mm3 (0.1-0.6); MONO % 8.6 % (1.7-9.3); PLATELET COUNT 153 K/mm3 (130-400); RED BLOOD COUNT 3.74 M/mm3 (4.10-5.30); REDCELL DISTRIBUTION WIDTH-CV 13.2 % (11.5-14.5)
[2024-03-24 06:24] LABS: HEMATOCRIT 34.7 % (37.0-47.0)
[2024-03-24 06:59] LABS: CREATININE, serum 0.59 mg/dL (0.57-1.11); POTASSIUM 3.8 mEq/L (3.5-4.5)
[2024-03-24] MEDS ORDERED: Potassium Bicarbonate/Citrate 20 MEQ Effervescent TAB PO ONE (08:00)
--- NOTE | 2024-03-24 08:30 | NUR ---
Pt. sitting up in chair. Pt. is A&OX3, assessment complete. INT to lt. wrist patent. Pt. reports pain at a 3 on pain scale to rt. hip. Pt. denies need for pain meds at this time. Dressing to rt. hip cdi. Pt. denies further needs, call light within reach.
--- NOTE | 2024-03-24 10:59 | NUR ---
ORACLE BUSINESS INTELLIGENCE DEVELOPER went to meet wt pt bedside. Pt was sleeping very heavily. ORACLE BUSINESS INTELLIGENCE DEVELOPER called Yelitza FERRIS. Yelitza understood that pt would need rehab after and ORACLE BUSINESS INTELLIGENCE DEVELOPER discussed different options. Yelitza choose first choice [facility] and second [facility]. Yelitza would like to hold off on a referral being sent to [facility] until [facility] has made a decision. ORACLE BUSINESS INTELLIGENCE DEVELOPER faxed a referral to [facility]. D/C: SNF
[2024-03-24] MEDS ORDERED: Magnesium Sulfate 4% 50 ML IV ONE (12:15)
[2024-03-25 00:02] VITALS: BP_SYST 160
[2024-03-25 04:00] VITALS: BP 146/82; PULSE 73; TEMP 97.9
[2024-03-25 06:39] LABS: BASO # 0.1 K/mm3 (0.0-0.2); BASO % 0.5 % (0.0-2.0); EOS # 0.2 K/mm3 (0.0-0.7); EOS % 1.4 % (0.0-4.0); GRAN # 9.4 K/mm3 (1.4-6.5); HEMATOCRIT 37.1 % (37.0-47.0); HEMOGLOBIN 12.4 g/dl (12.5-16.0); LYMPH # 0.9 K/mm3 (1.2-3.4); LYMPH % 7.8 % (20.0-51.0); MEAN CELL VOLUME 93 fl (80.0-100.0); MEAN CORPUSCULAR HEMOGLOBIN 31 pg (27-31); MEAN CORPUSCULAR HGB CONC 33 g/dl (33.0-37.0); MEAN PLATELET VOLUME 10.2 fl (7.4-10.4); MONO # 0.9 K/mm3 (0.1-0.6); PLATELET COUNT 181 K/mm3 (130-400); RED BLOOD COUNT 3.98 M/mm3 (4.10-5.30); REDCELL DISTRIBUTION WIDTH-CV 13.3 % (11.5-14.5)
[2024-03-25 07:25] LABS: CALCIUM 7.9 mg/dL (8.4-10.2); CREATININE, serum 0.56 mg/dL (0.57-1.11); MAGNESIUM 1.7 mg/dL (1.6-2.6)
[2024-03-25 08:31] VITALS: BP 115/64; PULSE 74; TEMP 96.9
[2024-03-25] MEDS ORDERED: DOXYCYCLINE HY100 MG PO (10:45)
[2024-03-25] MEDS ORDERED: PERFOROMIS20 MCG/2 M IH (10:46)
[2024-03-25] MEDS ORDERED: TYLENOL 500MG500 MG PO (10:49)
[2024-03-25] MEDS ORDERED: SENNA-S 50 MG-81 TAB PO (10:50)
[2024-03-25] MEDS ORDERED: PULMICORT0.5 MG/2 M IH (10:50)
[2024-03-25] MEDS ORDERED: MIRALAX510G PO (10:50)
[2024-03-25 11:33] VITALS: BP 144/76; PULSE 73; TEMP 98
[2024-03-25] MEDS ORDERED: PERCOCET 325 MG1 TA2 PO ×2 (11:40→11:42)
--- NOTE | 2024-03-25 11:43 | NUR ---
After starting IV abx this morning, patient reported pain to Left wrist IV. Was flushing well, no redness, swelling, or leaking. Patient continued to complain of discomfort so this nurse changed IV site to R inner forearm 20g. Left wrist IV removed. No further discomfort noted to new IV site.
--- NOTE | 2024-03-25 12:30 | NUR ---
Report called to [facility]. All questions answered, plan for pt to leave around 1:00pm
--- NOTE | 2024-03-25 16:37 | NUR ---
top and trim worker contacted [facility] whom expressed they did not receive the referral. PRETTY secure emailed the referral. PRETTY was notified [facility] had a few questions regarding her nodular mac. PRETTY spoke with patient's nurse and gave those answers to [facility]. [facility] is able to accept today. Patient is medically ready for discharge. PRETTY scheduled transport for 1 pm, pretty notified community development planner, patient's nurse and Dr. Staley. PRETTY met with patient and her daughter, Yelitza. PRETTY reviewed important message from Medicare with patient and her daughter. Patient and daughter understood. Patient signed the form and put "all good" on the form as patient had no concerns about her care here. PRETTY made copy, placed original in chart and provided copy to patient. PRETTY notified patient and her daughter of discharge time. PRETTY secure emailed discharge orders to [facility]. Discharge plan: [facility]
== END 2024-03-25 13:20 | DRG 521 ==
LOC: COL.ER 17:31 → SURG 20:25
PROVIDERS: Family Medicine; Hospitalist; Orthopaedic Surgery; Physician Assistant; ADMIT Internal Medicine
PROC: 0SRR0J9 Replacement of Right Hip Joint, Femoral Surface with Synthetic Substitute, Cemented, Open Approach (ICD-10-PCS; principal; 2024-03-22 14:00)
DX: S72.001A Fracture of unspecified part of neck of right femur, initial encounter for closed fracture (principal); J96.01 Acute respiratory failure with hypoxia; I50.30 Unspecified diastolic (congestive) heart failure; Z68.1 Body mass index [BMI] 19.9 or less, adult; E44.0 Moderate protein-calorie malnutrition; E78.5 Hyperlipidemia, unspecified; H40.9 Unspecified glaucoma; I25.10 Atherosclerotic heart disease of native coronary artery without angina pectoris; D72.829 Elevated white blood cell count, unspecified; J44.9 Chronic obstructive pulmonary disease, unspecified; E87.6 Hypokalemia; I11.0 Hypertensive heart disease with heart failure; E83.42 Hypomagnesemia; W01.0XXA Fall on same level from slipping, tripping and stumbling without subsequent striking against object, initial encounter; I08.1 Rheumatic disorders of both mitral and tricuspid valves; J47.9 Bronchiectasis, uncomplicated; Y93.89 Activity, other specified; Y92.89 Other specified places as the place of occurrence of the external cause; I25.2 Old myocardial infarction; Z95.5 Presence of coronary angioplasty implant and graft; Z88.2 Allergy status to sulfonamides; Z79.82 Long term (current) use of aspirin; Z79.899 Other long term (current) drug therapy; Z23 Encounter for immunization
CPT/HCPCS: A4314; A6197; A9284; C1776; J0360; J0665; J0690; J1920; J2270; J2405; J2704; J3010; J3475; J7120

== ENCOUNTER 2024-04-17 18:29 | Emergency (ER) | payer MEDICARE, BC ==
[~2024-04-17] VITALS: Ht 162.6 cm; Wt 38.2 kg
[~2024-04-17 18:29] MED LIST changes: +DOXYCYCLINE HY100 MG PO; +MIRALAX510G PO; +PERFOROMIS20 MCG/2 M IH; +PULMICORT0.5 MG/2 M IH; +SENNA-S 50 MG-81 TAB PO; +TYLENOL 500MG500 MG PO
[2024-04-17 18:30] VITALS: TEMP 97.9
[2024-04-17 20:33] VITALS: BP 169/99; PULSE 84
== END 2024-04-17 20:41 | disposition home or self-care (01) ==
LOC: COL.ER 18:29
DX: S70.01XA Contusion of right hip, initial encounter (principal); S00.03XA Contusion of scalp, initial encounter; S40.011A Contusion of right shoulder, initial encounter; I25.10 Atherosclerotic heart disease of native coronary artery without angina pectoris; Z95.5 Presence of coronary angioplasty implant and graft; W18.30XA Fall on same level, unspecified, initial encounter; Y92.009 Unspecified place in unspecified non-institutional (private) residence as the place of occurrence of the external cause

== ENCOUNTER 2024-05-28 22:40 | Inpatient (IN) | payer MEDICARE, BC ==
[~2024-05-28] VITALS: Ht 154.9 cm; Wt 43.8 kg
[2024-05-28 23:07] LABS: BASO # 0.1 K/mm3 (0.0-0.2); EOS # 0.3 K/mm3 (0.0-0.7); EOS % 3.2 % (0.0-4.0); GRAN # 6.2 K/mm3 (1.4-6.5); GRAN % 74.6 % (42.2-75.2); HEMATOCRIT 40.6 % (37.0-47.0); HEMOGLOBIN 13.9 g/dl (12.5-16.0); LYMPH # 1.1 K/mm3 (1.2-3.4); LYMPH % 12.8 % (20.0-51.0); MEAN CELL VOLUME 94 fl (80.0-100.0); MEAN CORPUSCULAR HEMOGLOBIN 32 pg (27-31); MEAN CORPUSCULAR HGB CONC 34 g/dl (33.0-37.0); MEAN PLATELET VOLUME 9.6 fl (7.4-10.4); MONO # 0.6 K/mm3 (0.1-0.6); MONO % 7.4 % (1.7-9.3); PLATELET COUNT 274 K/mm3 (130-400); RED BLOOD COUNT 4.33 M/mm3 (4.10-5.30); REDCELL DISTRIBUTION WIDTH-CV 14.1 % (11.5-14.5)
[2024-05-28] MEDS ORDERED: Ketorolac 15 MG/ML VIAL IV ONE (23:45)
[2024-05-29] VITALS (12 sets, daily range): BP systolic 102–150; BP diastolic 58–77; PULSE 61–68; TEMP 97.4–99.1
[2024-05-29 00:16] LABS: COLLECTION METHOD CLEAN CATCH
[2024-05-29 00:21] LABS: URINE APPEARANCE CLOUDY (CLEAR/HAZY); URINE BLOOD NEGATIVE (NEGATIVE); URINE COLOR YELLOW (YELLOW); URINE GLUCOSE NEGATIVE (NEGATIVE); URINE KETONE NEGATIVE (NEGATIVE); URINE NITRATE NEGATIVE (NEGATIVE); URINE PROTEIN(semi-quant) NEGATIVE (NEGATIVE); URINE UROBILINOGEN 0.2 E.U/dL (0.2-1.0)
[2024-05-29 00:52] LABS: CALCIUM 8.1 mg/dL (8.4-10.2); CREATININE, serum 0.67 mg/dL (0.57-1.11); POTASSIUM 4.4 mEq/L (3.5-4.5)
[2024-05-29] MEDS ORDERED: oxyCODONE 5 MG TAB PO PRN (01:45)
[2024-05-29] MEDS ORDERED: NS 1,000 ML IV SCH (01:45)
[2024-05-29] MEDS ORDERED: Docusate Sodium 100 MG CAP PO PRN (01:45)
[2024-05-29] MEDS ORDERED: Bisacodyl 5 MG TAB PO PRN (01:45)
[2024-05-29] MEDS ORDERED: Polyethylene Glycol 3350 17 GM PDS PO PRN (01:45)
[2024-05-29] MEDS ORDERED: Naloxone 0.4 MG/ML VIAL IV PRN (01:45)
--- NOTE | 2024-05-29 02:31 | NUR ---
PATIENT ADMITTED TO ROOM 303 BROUGHT UP BY ED-RNSHAKIRA, VS ARE: 145/76BP, 67P, 99.1T AND 93 % O2 ON ROOM AIR. PATIENT A&O X4 AND NEUROS WNL. ORIENTED TO ROOM. PER ED, MED REC COMPLETE-WILL REVIEW WITH PATIENT. PATIENT STATES NO NEEDS AT THIS TIME.
[2024-05-29] MEDS ORDERED: Acetaminophen 500 MG TAB PO PRN (02:36)
[2024-05-29 06:36] LABS: BASO # 0.1 K/mm3 (0.0-0.2); BASO % 0.5 % (0.0-2.0); EOS # 0.1 K/mm3 (0.0-0.7); EOS % 0.7 % (0.0-4.0); GRAN # 11.2 K/mm3 (1.4-6.5); GRAN % 82.8 % (42.2-75.2); HEMATOCRIT 37.5 % (37.0-47.0); HEMOGLOBIN 12.8 g/dl (12.5-16.0); LYMPH # 1.2 K/mm3 (1.2-3.4); MEAN CELL VOLUME 92 fl (80.0-100.0); MEAN CORPUSCULAR HEMOGLOBIN 31 pg (27-31); MEAN CORPUSCULAR HGB CONC 34 g/dl (33.0-37.0); MEAN PLATELET VOLUME 9.4 fl (7.4-10.4); MONO # 0.9 K/mm3 (0.1-0.6); MONO % 6.6 % (1.7-9.3); PLATELET COUNT 220 K/mm3 (130-400); RED BLOOD COUNT 4.07 M/mm3 (4.10-5.30); REDCELL DISTRIBUTION WIDTH-CV 13.6 % (11.5-14.5)
[2024-05-29 06:49] LABS: CALCIUM 7.6 mg/dL (8.4-10.2); CREATININE, serum 0.66 mg/dL (0.57-1.11); POTASSIUM 4.7 mEq/L (3.5-4.5)
--- NOTE | 2024-05-29 08:00 | NUR ---
Patient resting in bed, surgical doctor in place. Pt complains of pain /, PRN provided. Assessment completed, meds given. Breakfast tray arrived. Pt with nausea and feels dizzy. Refuses to eat right now. This nurse will asks for some nausea medication. Call light within reach, bed alarm on.
[2024-05-29] MEDS ORDERED: [UNRECOGNIZED DRUG - REMARK] OP SCH (09:00)
[2024-05-29] MEDS ORDERED: Losartan 25 MG TAB PO SCH (09:00)
[2024-05-29] MEDS ORDERED: Cholecalciferol (Vit D3) 25 MCG (1,000 Units) TAB PO SCH (09:00)
[2024-05-29] MEDS ORDERED: Calcium Carb/Vit D3 500 mg-5 mcg(200 Units) TAB PO SCH (09:00)
[2024-05-29] MEDS ORDERED: Multivitamin TAB PO SCH (09:00)
[2024-05-29] MEDS ORDERED: TIMOLOL 0.25% OP SCH (09:00)
[2024-05-29] MEDS ORDERED: Ondansetron 4 MG/2 ML VIAL IV PRN (10:30)
[2024-05-29] MEDS ORDERED: Ondansetron 4 MG/2 ML VIAL IV ONE (10:30)
--- NOTE | 2024-05-29 11:34 | NUR ---
Geological Aide met with patient to discuss discharge planning. Patient lives in [place] with her , Levy. Patient advised Levy mostly uses a wheelchair and neither of them drive. Patient's daughter, Yelitza (ph#[phone]) lives locally and drives them to appointments and picks up their medications. Patient sees Dr. Morales for primary care and gets medications from [facility]. Patient has [facility], however she stated they were getting ready to discharge her. Patient uses a walker for ambulation and reported she is normally independent with ADLS. Patient was not sure if she has DPOA-HC completed, but believes she might. SW discussed discharge planning and provided Medicare.gov list of SNF options if rehab is needed. Patient wasn't sure what she plans to do at this point. PT/OT recommendations and work up is pending. SW contacted patient's daughter, Yelitza to review the above information. JOHN PAUL also contacted Viky at Dr. Morales's office to inquire about DPOA-HC. There was nothing on file. Discharge Plan: Pending workup and PT/OT evaluations
[2024-05-29] MEDS ORDERED: Acetaminophen 500 MG TAB PO SCH (14:00)
--- NOTE | 2024-05-29 15:10 | NUR ---
Pt asking for more pain meds than allowed, call placed to Dr. Forbes for review. Pt refusing to move, specialty bed ordered to [facility] [id number].
--- NOTE | 2024-05-29 16:47 | NUR ---
Patient is resting in bed with lights off but awake. States her pain is 8/10. PRN provided.
--- NOTE | 2024-05-29 18:27 | NUR ---
Patient on an ARJO bed now. She has been eating poorly, drinking her nutritional supplement. Pt transfered to chair previously to change the bed by 2 assist, tolerating standing. She ate dinner on chair. Right now she is back in bed stable. Report will be given to night RN.
--- NOTE | 2024-05-29 20:30 | NUR ---
UPON SHIFT ASSESSMENT, PATIENT LAYING IN BED AWAKE AND A&O X4. RLE DISTAL PULSES AND SENSATION PRESENT. PATIENT C/O 6/10 PAIN, VS ARE WNL. PATIENT PELVIC AND SACRAL Fx DEEMED NON SURGICAL BY ORTHO. LUNGS STILL ASCULTATE COARSE CRACKLES IN RT LOBES-WILL CONTINUE TO PASS TO DAYSHIFT MOST RECENT LABS REVEAL WBC OF 13.6, HOWEVER, PATIENT HAS Hx OF AVIUM BRONCHILACTESIS AND FOLLOWS WITH PULMONOLGY. CRACKLES ARE CHRONIC PER PATIENT STATEMENT. CALL LIGHT WITHIN REACH, BED ALARM ON.
--- NOTE | 2024-05-29 20:30 | NUR ---
CALL PLACED TO HOSPITALISTFRANDY. PATIENT PAIN UNRESOLVED BY 5MG OXYCODONE AND 1000ML TYLENOL. HOSPITALIST TO REVIEW, NO NEW ORDERS.
[2024-05-29] MEDS ORDERED: Latanoprost 0.005% Ophth Soln 2.5 ML BOTTLE OP SCH (21:00)
[2024-05-29] MEDS ORDERED: Atorvastatin 40 MG TAB PO SCH (21:00)
--- NOTE | 2024-05-29 21:43 | NUR ---
REASSESSED PAIN, PROVIDED THERAPEUTIC COMMUNICATION, EDUCATION ON BRACING, REPOSITIONED, APPLIED FRESH ICE PACK AND POSITIVE FEEDBACK. PATIENT FINALLY RATES PAIN AT GOAL OF 4/10.
[2024-05-30] VITALS (10 sets, daily range): BP systolic 136–175; BP diastolic 68–86; PULSE 56–71; TEMP 97.5–98.7
--- NOTE | 2024-05-30 01:34 | NUR ---
CALL PLACED TO RT. FRANCIE 02 SAT NOW 90% ON RA. RT WILL BE UP TO BEDSIDE TO ASSESS. AISSATOU WOLF X4, OTHER VS ARE WNL.
--- NOTE | 2024-05-30 05:47 | NUR ---
ATTEMPTED JENNIFER HOSE PLACEMENT, PATIENT STATES TOO PAINFUL. WILL PASS TO DAYSHIFT FOR PT TO PLACE.
[2024-05-30 06:31] LABS: BASO # 0.1 K/mm3 (0.0-0.2); BASO % 0.6 % (0.0-2.0); EOS # 0.1 K/mm3 (0.0-0.7); EOS % 1.2 % (0.0-4.0); GRAN # 7.9 K/mm3 (1.4-6.5); HEMOGLOBIN 12.1 g/dl (12.5-16.0); LYMPH # 1.2 K/mm3 (1.2-3.4); LYMPH % 11.4 % (20.0-51.0); MEAN CELL VOLUME 95 fl (80.0-100.0); MEAN CORPUSCULAR HEMOGLOBIN 32 pg (27-31); MEAN CORPUSCULAR HGB CONC 34 g/dl (33.0-37.0); MEAN PLATELET VOLUME 9.4 fl (7.4-10.4); MONO # 1.1 K/mm3 (0.1-0.6); MONO % 10.4 % (1.7-9.3); PLATELET COUNT 226 K/mm3 (130-400); RED BLOOD COUNT 3.77 M/mm3 (4.10-5.30); REDCELL DISTRIBUTION WIDTH-CV 13.9 % (11.5-14.5)
[2024-05-30 06:33] LABS: HEMATOCRIT 35.9 % (37.0-47.0)
[2024-05-30 06:47] LABS: CALCIUM 7.5 mg/dL (8.4-10.2); CREATININE, serum 0.66 mg/dL (0.57-1.11); POTASSIUM 4.5 mEq/L (3.5-4.5)
[2024-05-30] MEDS ORDERED: Morphine 4 MG/ML VIAL IV PRN (08:00)
--- NOTE | 2024-05-30 08:23 | NUR ---
Received report from night nurse Hazel. The Patient is laying in bed on her left side. She is on O2 via nasal cannula on 2 L. IV running with NS at 60 mL. Wearing SCDs on both legs.
--- NOTE | 2024-05-30 10:04 | NUR ---
Initial visit; Patient thanked Portable Grinding Machine Operator for looking in on her and offering a "get well" message and God's blessings.
--- NOTE | 2024-05-30 13:24 | NUR ---
JOHN PAUL reviewed chart. Therapy recommending rehab at discharge. SW met with patient to discuss and provided Medicare.gov list of SNF facilities. Patient shared that she was at [facility] in February and discharged home with [facility], which she is still receiving services from. JOHN PAUL left message for Monika at [facility] to discuss if patient has skilled days available. Discharge plan: SNF
--- NOTE | 2024-05-30 13:36 | NUR ---
Patient is sitting up in recliner. Daughter is sitting by her. Reports no needs at this time. Reported off to primary nurse Yara.
--- NOTE | 2024-05-30 18:00 | NUR ---
Assumed care of patient from Pam Reid RN.
--- NOTE | 2024-05-30 18:25 | NUR ---
Morpine 1mg administered IVP for c/o pain. Pt positioned on left side with pillow between legs.
--- NOTE | 2024-05-30 19:00 | NUR ---
Pt denies pain when not moving and feels that the morphine was helpful. O2 1L/NC. Denies SOA. SCD and thigh high JENNIFER hose on BLE. NS infusing at 75ml/hr to RFA without s/s IV related complications. Mario DD yellow cloudy urine. Denies needs at this time. Bedside report given to JAMARI Hassan.
--- NOTE | 2024-05-30 20:30 | NUR ---
Initial shift assessment done- states pain to right thigh /hip area 12/07 with any movement-- would like pain meds with night pills, o2 at 1L/nc, denies SOB, Mario with meghann urine/cloudy, IV NS at 60cc/hr, Has TEDS /SCDS on, was repositioned - insisted on staying on left side , but did put a small pillw under left side also.
[2024-05-31] VITALS (11 sets, daily range): BP systolic 104–166; BP diastolic 59–85; PULSE 61–79; TEMP 97.5–98.6
--- NOTE | 2024-05-31 05:43 | NUR ---
Did sleep on and off all night, was confused when she woke up during the night as to "where am I'' reoriented, will see if her pain is controlled with just Tylenol during the night- pt agrees. Pt states pain to right thigh 11/07-
[2024-05-31 06:57] LABS: HEMATOCRIT 36.9 % (37.0-47.0); HEMOGLOBIN 12.5 g/dl (12.5-16.0); MEAN CELL VOLUME 92 fl (80.0-100.0); MEAN CORPUSCULAR HEMOGLOBIN 31 pg (27-31); MEAN CORPUSCULAR HGB CONC 34 g/dl (33.0-37.0); MEAN PLATELET VOLUME 9.4 fl (7.4-10.4); PLATELET COUNT 211 K/mm3 (130-400); REDCELL DISTRIBUTION WIDTH-CV 13.4 % (11.5-14.5)
[2024-05-31 07:13] LABS: CALCIUM 7.8 mg/dL (8.4-10.2); CREATININE, serum 0.56 mg/dL (0.57-1.11); POTASSIUM 4.2 mEq/L (3.5-4.5)
--- NOTE | 2024-05-31 08:03 | NUR ---
Patient in bed upon entering room. Oxygen on 1L per NC. Indwelling catheter draining yellow clear urine. Patient reports minimal pain while resting but increases with movement. Rating pain 3/10 at this time. Vital signs and assessment completed. Breakfast tray arrived and patient was eating in bed upon exiting the room.
--- NOTE | 2024-05-31 08:30 | NUR ---
PATIENT ALERT AND ORIENTED X3. HARD OF HEARING. PATIENT REPORTS PAIN WITH MOVEMENT. PAIN IS RATED 6/10 TO SACRAL/HIPS AREA WITH MOVEMENT. PATIENT ON 1L 02/. DOING IS EXERCISES. JENNIFER/SCD'S INPLACE.PATIENT MCPHERSON CATHETER DRAINING YELLOW CLEAR URINE. CALL LIGHT WITHIN REACH.BED AT LOWEST POSITION.
[2024-05-31] MEDS ORDERED: traMADol 50 MG TAB PO SCH (11:00)
--- NOTE | 2024-05-31 11:41 | NUR ---
JOHN PAUL notified by RN that patient and daughter requesting to speak with SW. SW met with them in room. Patient is referred and accepted to [facility] pending medical stability. Daughter voiced that she would prefer referral to [facility] if they can accept. Patient voiced same preference. Referral sent via secure email to [facility]. Discharge plan: SNF
--- NOTE | 2024-05-31 13:28 | NUR ---
Pateint sitting in chair upon entering room. Denies pain at this time. Scheduled pain medication administered. Mario catheter emptied and output recorded. Call light within reach. Report given to floor note.
--- NOTE | 2024-05-31 15:28 | NUR ---
SW attended clinical huddle meeting. Patient could possibly discharge this weekend. SW met with patient and daughter to inform that patient is accepted to [facility]. JOHN PAUL called Aelxy at [facility] to relay information of possible discharge this weekend, which he is agreeable to. JOHN PAUL called Monika at [facility] to inform that patient and daughter have chosen a different facility. Discharge plan: [facility] SNF
--- NOTE | 2024-05-31 19:07 | NUR ---
PATIENT RESTING IN BED SITTING UP AT A 35 DEGREE ANGLE WITH TV ON WITH NO FAMILY PRESENT WITH NO ACUTE DISTRESS NOTED. PATIENT ON ROOM AIR. INT TO RIGHT AND LEFT FOREARM INTACT WITH NO COMPLICATIONS NOTED. MCPHERSON CATH INTACT, PATENT, AND DRAINING CLEAR YELLOW URINE. BEDSIDE SHIFT REPORT COMPLETED WITH FELIZ AT THIS TIME. PATIENT C/O PAIN AND VOICED UNDERSTANDING THAT MEDICATION WOULD BE GIVEN. PATIENT DENIES ANY OTHER NEEDS. BED IN LOW POSITION WITH WHEELS LOCKED WITH RAILS UP X3 AND CALL LIGHT WITHIN REACH. BED ALAMR ON.
--- NOTE | 2024-05-31 20:40 | NUR ---
PATIENT RESTING IN BED WITH TV OFF WITH NO FAMILY PRESENT WITH NO ACUTE DISTRESS NOTED. PATIENT ON ROOM AIR. INT TO RIGHT AND LEFT FOREAM INTACT WITH NO COMPLICATIONS NOTED. MCPHERSON CATHETER INTACT, PATENT, AND DRAINING CLEAR YELLOW URINE. ASSESSMENT AND MEDICATION ADMINISTRATION COMPLETED AT THIS TIME. PATIENT STATED "I DON'T HAVE PAIN UNLESS I MOVE." PATIENT RATED HER PAIN AT 5/10 AT THIS TIME. SCHEDULED MEDICATION GIVEN. PATIENT TOLERATED WELL. PATIENT ENCOURAGED TO DRINK ENSURE DUE TO BLOOD SUGAR BEING 84. PATIENT DRANK ALL OF HER ENSURE. PATIENT DENIES ANY OTHER NEEDS AT THIS TIME. BED IN LOW POSITION WITH WHEELS LOCKED WITH RAILS UP X3 AND CALL LIGHT WITHIN REACH. BED ALARM ON.
[2024-06-01] VITALS (7 sets, daily range): BP systolic 114–165; BP diastolic 61–82; PULSE 64–70; TEMP 97.5–97.8
--- NOTE | 2024-06-01 07:05 | NUR ---
Pt laying in bed. Denies needs at this time. Call light in reach and bed alarm on.
--- NOTE | 2024-06-01 09:06 | NUR ---
Pt laying in bed. A&Ox4. VSS. S1S2. Clear lungs on RA. ABd round, soft, non-tender with audible bowel sounds. Palpable pulses in all extremities with fair strength in BLE, normal strength in BUE. INT in R forearm patent, no issues. Pt reporting mild discomfort in Right hip, 5/10 when moving, 1/10 when still. Placed ice pack on R hip and administered pain meds. No further needs at this time. Call light in reach and bed alarm on.
[2024-06-01] MEDS ORDERED: ULTRAM 50MG TAB50 MG PO (11:32)
[2024-06-01] MEDS ORDERED: ASPIRIN 81M81 MG/TA2 PO (11:33)
[2024-06-01] MEDS ORDERED: PROTONIX 40MG T40 MG PO (11:35)
--- NOTE | 2024-06-01 11:55 | NUR ---
Discontinued Pt's Mario Catheter. Pt tolerated procedure well. 9 cc water pulled from balloon. Pt denies needs at this time.
--- NOTE | 2024-06-01 11:58 | NUR ---
Pt reports she ate her lunch (sandwich daughter brought in) prior to her blood sugar being assessed.
--- NOTE | 2024-06-01 13:53 | NUR ---
SW met with patient to complete IM form, patient reports no concerns on discharge back to [facility]. Patient discharge packet was faxed and received by agency - ETA 1330 today.
--- NOTE | 2024-06-01 13:55 | NUR ---
Pt transported to [facility] via WC. Daughter collected and transporting all of Pt's personal items. Report called to JAMARI Avitia at [facility]. No further needs at this time.
== END 2024-06-01 13:55 | DRG 536 ==
LOC: COL.ER 22:40 → MEDICAL 05-29 01:18
PROVIDERS: Emergency Medicine; Internal Medicine; Nurse Practitioner Family; ADMIT Internal Medicine
DX: S32.511A Fracture of superior rim of right pubis, initial encounter for closed fracture (principal); E87.1 Hypo-osmolality and hyponatremia; E87.20 Acidosis, unspecified; I50.30 Unspecified diastolic (congestive) heart failure; Z96.651 Presence of right artificial knee joint; W06.XXXA Fall from bed, initial encounter; S00.03XA Contusion of scalp, initial encounter; I95.1 Orthostatic hypotension; E78.5 Hyperlipidemia, unspecified; I11.0 Hypertensive heart disease with heart failure; J47.9 Bronchiectasis, uncomplicated; H40.9 Unspecified glaucoma; Z79.82 Long term (current) use of aspirin; Z79.899 Other long term (current) drug therapy; Y92.013 Bedroom of single-family (private) house as the place of occurrence of the external cause; Z88.2 Allergy status to sulfonamides; Z86.79 Personal history of other diseases of the circulatory system; Z98.49 Cataract extraction status, unspecified eye; Z95.5 Presence of coronary angioplasty implant and graft
CPT/HCPCS: A4314; A9284; J1885; J2270; J2405; J7030